=== PATIENT | male | born 1950 | race Caucasian/White ===

== ENCOUNTER → 2018-04-21 | Outpatient (CLI) | payer OTHER ==
--- NOTE | 2018-04-21 11:40 | RADIOLOGY IMAGING REPORT ---
FACILITY: [facility] [place] PATIENT NAME: Soto Modi : 1950 MR: [id number] V: [id number] EXAM DATE: ORDERING PHYSICIAN: TATO DE LA O TECHNOLOGIST: Location: [facility] Patient: Soto Modi : 1950 Visit/Account:[id number] Date of Sevice: 04/21/2018 ABDOMEN/PELVIS W/O CONTRAST HISTORY: Urinary retention TECHNIQUE: Axial images acquired through the abdomen/pelvis. Coronal and sagittal reformatting also performed. No IV contrast administered. Dose Lowering Technique One of the following dose optimization techniques was utilized in the performance of this exam: Autom ated exposure control; adjustment of the mA and/or kV according to the patient's size; or use of an i terative reconstruction technique. Specific details can be referenced in the facility's radiology C T exam operational policy. COMPARISON: None. FINDINGS: Visualized lung bases: There is a 2 mm calcified granuloma in the anterior right lower lobe Hepatobiliary: There is a subtle hypodensity posterior aspect of the dome of the liver not ideally c haracterized without contrast. The gallbladder appears contracted which could be related to recent m eal. Spleen: Borderline enlarged Adrenals: Negative. Pancreas: Punctate calcification within the body of the pancreas Kidneys ureters and bladder: There is moderate bilateral hydronephrosis and moderate to severe bilate ral hydroureter ureter. The urinary bladder is distended to the level the umbilicus. There Is a wid e necked diverticulum along the bladder dome. There are several irregular nodular areas along the po sterior wall the bladder. Bladder mass is not excluded Genitalia: Prostate gland is enlarged impinging upon the floor the bladder GI: There Is diverticulosis left-sided colon although no CT evidence of acute diverticulitis. The a ppendix is visualized and does not appear inflamed Vessels/spaces/nodes: There are small shotty retroperitoneal lymph nodes, all appear to measure less than 1 cm in horizontal short axis Bones/soft tissues: Moderate spondylotic changes of the visualized thoracolumbar spine Additional findings: None pertinent. IMPRESSION: Moderate bilateral hydronephrosis and moderate severe bilateral hydroureter. Urinary bladder is zeyad rely distended to the level the umbilicus. There is a wide necked diverticulum along the bladder dome Several irregular nodular areas are seen along the posterior wall the bladder. Bladder mass is not e xcluded Subtle hypodensity posterior aspect dome of the liver not ideally characterized without contrast. If further imaging is desired ultrasound or MR recommended or postcontrast CT Diverticulosis of the colon although no CT evidence of acute diverticulitis Shotty which peroneal lymph nodes Results were called to TATO DE LA O at 04/21/2018 11:30AM. Report Dictated By: Kathy Hurt MD at 04/21/2018 11:25 AM Report E-Signed By: Kathy Hurt MD at 04/21/2018 11:38 AM WSN:[id number]
== END ==
LOC: CT 10:42
DX: N13.30 Unspecified hydronephrosis (principal); N13.4 Hydroureter; K57.30 Diverticulosis of large intestine without perforation or abscess without bleeding
CPT/HCPCS: 74176

== ENCOUNTER 2018-04-27 01:12 | Observation (INO) | payer OTHER ==
[2018-04-24 12:26] LABS: PLATELET COUNT, AUTOMATED 213 K/uL (150-450)
[~2018-04-27] VITALS: Ht 177.8 cm; Wt 81.2 kg
[2018-04-27] VITALS (12 sets, daily range): BP systolic 91–134; BP diastolic 57–97
[~2018-04-27 01:12] MED LIST: ACET-2146 PO; CALC-943 PO; CIPR-214 PO; GABA-549 PO; GLUC-198 PO; LEVO50TA86 PO; LORA-788 PO; MULT-1354 PO; TAMS0.4C70 PO; ZINC50TA43 PO
[2018-04-27] MEDS ORDERED: LIDOCAINE MPF 1% 5 ML VIAL ONE (07:51)
[2018-04-27] MEDS ORDERED: fentaNYL CITR 100 MCG/2 ML AMP ONE ×4 (07:51→13:42)
[2018-04-27] MEDS ORDERED: ONDANSETRON 4 MG/2 ML VIAL ONE (07:51)
[2018-04-27] MEDS ORDERED: PROPOFOL EMUL(*) 10MG/ML 20 ML 20 ML ONE (07:51)
[2018-04-27] MEDS ORDERED: DEXAMETHASONE SOD 4 MG/ML VIAL ONE (07:51)
[2018-04-27] MEDS ORDERED: NS 0.9% 20 ML SDV 20 ML ONE ×2 (07:52→13:29)
[2018-04-27] MEDS ORDERED: KETAMINE HCL 500 MG/10 ML VIAL ONE ×2 (07:52→13:23)
[2018-04-27] MEDS ORDERED: NORMOSOL R SOLN(*) 1000 ML BAG 1,000 ML IV PRN (08:35)
[2018-04-27] MEDS ORDERED: LIDOCAINE/SOD BICARB 8.4% SYR ID ONE (08:35)
[2018-04-27] MEDS ORDERED: FAMOTIDINE 20 MG TAB PO ONE (08:35)
[2018-04-27] MEDS ORDERED: MIDAZOLAM 2 MG/2 ML VIAL IVP PRN (08:35)
[2018-04-27] MEDS ORDERED: cefTRIAXone(*) 1 GM VIAL 1 GM in NS(*) 0.9% 100 ML ADDVANT BAG 100 ML IVPB ONE (08:35)
[2018-04-27] MEDS ORDERED: MINERAL OIL LIGHT 10 ML VIAL ONE (09:17)
[2018-04-27] MEDS ORDERED: HYDROCORTISONE 1% CR 28.35 GM TP ONE (09:18)
[2018-04-27] MEDS ORDERED: BELLADONNA ALK/OPIUM 60MG SUPP PR ONE (13:04)
[2018-04-27] MEDS ORDERED: GLYCOPYRROLATE 0.2MG/ML 1 ML INJ ONE (13:05)
[2018-04-27 13:17] LABS: PLATELET COUNT, AUTOMATED 209 K/uL (150-450)
[2018-04-27] MEDS ORDERED: ONDANSETRON 4 MG/2 ML VIAL IVP PRN (13:30)
[2018-04-27] MEDS ORDERED: FLUSH 10 ML SYR IVP PRN (13:30)
[2018-04-27] MEDS ORDERED: HYDROmorphone PCA 6 MG/30 ML IV PRN (13:30)
[2018-04-27] MEDS ORDERED: ZOLPIDEM TARTRATE 5 MG TAB PO PRN (13:30)
[2018-04-27] MEDS ORDERED: ACETAMIN/CODEINE #3 300-30 MG PO PRN (13:30)
[2018-04-27] MEDS ORDERED: NALOXONE HCL 0.4 MG/ML VIAL IVP PRN (13:30)
[2018-04-27] MEDS ORDERED: LR(*) 1000 ML BAG 1,000 ML IV PRN (13:30)
[2018-04-27] MEDS ORDERED: BELLADONNA ALK/OPIUM 60MG SUPP PR PRN (13:30)
[2018-04-27] MEDS ORDERED: GABA-547 PO (14:43)
[2018-04-27] MEDS ORDERED: PROMETHAZINE 25 MG/ML 1 ML AMP IVP PRN (16:20)
[2018-04-27] MEDS ORDERED: METOCLOPRAMIDE 10 MG/2 ML SDV IVP PRN (16:35)
[2018-04-27] MEDS: GENTAMICIN/NS 80 MG/100 ML PB 100 ML IVPB SCH (18:07)
[2018-04-27] MEDS: PROPANTHELINE BROMIDE 15MG TAB PO PRN (20:19)
[2018-04-27] MEDS: NEOMYCIN/POLYMYX/BACITR OINT 1 PACKET TP SCH (20:19)
[2018-04-27] MEDS: GABAPENTIN 100 MG CAP PO SCH (20:19)
[2018-04-27] MEDS: FAMOTIDINE 20 MG TAB PO SCH (20:20)
[2018-04-27] MEDS: DOCUSATE SODIUM 100 MG CAP PO SCH (20:20)
[2018-04-27] MEDS: GLYCOPYRROLATE 0.2MG/ML 1 ML INJ IVP PRN (23:39)
[2018-04-28] MEDS: PROPANTHELINE BROMIDE 15MG TAB PO PRN ×2 (02:29→08:21)
[2018-04-28] MEDS: GENTAMICIN/NS 80 MG/100 ML PB 100 ML IVPB SCH ×2 (02:29→10:53)
[2018-04-28 03:55] VITALS: BP 90/60
[2018-04-28 05:58] VITALS: BP 96/47
[2018-04-28] MEDS ORDERED: LEVOTHYROXINE SOD 0.05 MG TAB PO SCH (06:00)
[2018-04-28 07:45] VITALS: BP 112/73
[2018-04-28] MEDS: FAMOTIDINE 20 MG TAB PO SCH (08:21)
[2018-04-28] MEDS: GABAPENTIN 100 MG CAP PO SCH (08:21)
[2018-04-28] MEDS: NEOMYCIN/POLYMYX/BACITR OINT 1 PACKET TP SCH (08:21)
[2018-04-28] MEDS: DOCUSATE SODIUM 100 MG CAP PO SCH (08:21)
[2018-04-28] MEDS ORDERED: cefTRIAXone(*) 1 GM VIAL 1 GM in NS(*) 0.9% 100 ML ADDVANT BAG 100 ML IVPB SCH (09:00)
[2018-04-28 09:24] VITALS: Ht 177.8 cm; Wt 81.2 kg
[2018-04-28] MEDS: GLYCOPYRROLATE 0.2MG/ML 1 ML INJ IVP PRN (10:54)
[2018-04-28 11:03] VITALS: BP 100/66
[2018-04-28] MEDS ORDERED: BISACODYL 10 MG SUPP PR PRN (11:05)
[2018-04-28] MEDS ORDERED: MAGNESIUM HYDROXIDE* 30ML UDCP PO PRN (11:05)
[2018-04-28] MEDS ORDERED: CIPR-344 PO (13:12)
[2018-04-28] MEDS ORDERED: FAMO20TA28 PO (13:13)
[2018-04-28] MEDS ORDERED: DOCU-416 PO (13:13)
[2018-04-28] MEDS ORDERED: PHEN200T32 PO (13:13)
[2018-04-28] MEDS ORDERED: GLYC1TAB21 PO (13:14)
[2018-04-28] MEDS ORDERED: ACET-1718 PO (13:16)
--- NOTE | 2018-04-28 16:50 | OPERATIVE REPORT 1 ---
EVENT DATE: April 27, 2018 SURGEON: Dave Victoria MD ANESTHESIOLOGIST: Maciel Anna MD ANESTHESIA: General PREOPERATIVE DIAGNOSES 1. Urinary retention, etiology ?, probably secondary to outlet obstruction from the prostate gland. 2. Elevated prostate-specific antigen. 3. Possible bladder lesion. 4. Urinary retention. 5. Bilateral ureteropyelocaliectasis. POSTOPERATIVE DIAGNOSES 1. Urinary retention, secondary to outlet obstruction from the prostate gland. 2. Elevated prostate-specific antigen. 3. Possible bladder lesion. 4. Urinary retention. 5. Bilateral ureteropyelocaliectasis. 6. No evidence of bladder cancer. PROCEDURES PERFORMED 1. Cystourethroscopy. 2. Transurethral resection of prostate. 3. Vaporization of the prostate. DESCRIPTION OF PROCEDURE Under general anesthetic, the patient was prepped and draped in the extended lithotomy position. The 21 panendoscope was admitted through the urethra into the bladder. The urethra was normal. The prostate showed trilobar hyperplasia, long and broad and deep, estimated to be over 100 grams. Bladder showed 4+ trabeculation. There were no demonstrable lesions. There was intravesical extension of the median lobe to the verumontanum. The resection was begun by resecting the median lobe back to the verumontanum. The tissue was resected down to the circular fibers at the bladder neck area circumferentially. Bleeding was controlled with spot coagulation and vaporization. Right lateral lobe tissue was resected and then the left lateral lobe tissue. Apical tissue was resected at the conclusion of the procedure. Posterior tissue was dissected with finger in the rectum. Approximately 100 g of tissue were removed. The prostate was fairly vascular, but it is my clinical opinion that control of the bleeding was satisfactory. Estimated blood loss 300 mL, possibly a little more. At the conclusion of the procedure, the entire prostate capsule was vaporized. Chips were evacuated from the bladder. The bladder appeared to be free of chips. Bleeding appeared to be satisfactorily controlled. The bladder was filled with irrigation fluid, and there was good efflux of irrigation fluid that came out almost immediately upon withdrawal of the scope. A #22 Alexis was inserted through the urethra over a catheter guide and secured without any difficulty. Irrigation was clear at the conclusion of the procedure. Patient tolerated the procedure satisfactorily and returned to the recovery room in satisfactory condition. This is a 68-year-old white male complaining of urinary incontinence. CT IVP showed overfull bladder with associated retention and bilateral ureteropyelocaliectasis. Patient had a Alexis placed on the day of his x-ray. Patient had a [id number] postobstructive diuresis that has resolved. Options were discussed with the patient pretreatment as to transurethral resection of the prostate versus laser prostatectomy versus open procedure. Patient was agreeable to further evaluation and therapy. That has been accomplished. See operative note for details. Patient will be ready for discharge home, to force fluids, 2 L per day. Activities are restricted to careful ambulation. I did instruct on routine catheter care. He was fitted with a leg bag prior to discharge. He was sent home with a bedside drainage bag. Patient will be discharged home on Cipro, Pepcid, Pyridium, Motrin, and [place] therapy, in addition to his usual medications. Plan cath removal in approximately two days. [id number]
== END 2018-04-28 12:40 | disposition home or self-care (01) ==
LOC: OR 01:12 → MED 14:25
DX: N40.1 Benign prostatic hyperplasia with lower urinary tract symptoms (principal); R97.20 Elevated prostate specific antigen [PSA]; N13.2 Hydronephrosis with renal and ureteral calculous obstruction; E03.9 Hypothyroidism, unspecified
CPT/HCPCS: 36415; 52648; 84443; 85025; 88305; A4346; G0378; J0696; J1100; J1580; J2001; J2250; J2405; J2704; J2765; J3010; J3490; J7050; J7120; 82310; 82374; 82435; 82565; 82947; 84132; 84295; 84520